=== PATIENT | female | born 1955 ===

== ENCOUNTER 2022-04-02 16:37 | Outpatient (REF) | payer OTHER, SELFPAY | END 2022-04-02 16:38 | disposition home or self-care (01) | LOC: HO.LAB 16:37 | PROVIDERS: Visit Provider Nurse Practitioner Family | DX: N39.0 Urinary tract infection, site not specified (principal) | CPT/HCPCS: 87086 ==

== ENCOUNTER 2023-11-03 10:40 | Outpatient (AMB) | payer MEDICARE, MEDICAID, SELFPAY ==
--- NOTE | 2023-11-03 10:46 | A.OFFVIS_ITS ---
Intake Visit Reasons: [facility] referral for VV Intake Note: Patient has cramping in both legs, veins protrude when her legs swell. Accompanied by: Self / Same As Patient Allergies adhesive tape [ADHESIVE TAPE] Allergy (Unknown, Verified 11/03/23 10:47) RASH amitriptyline [AMITRIPTYLINE] Allergy (Unknown, Verified 11/03/23 10:47) NAUSEA,GI UPSET milnacipran [From SAVELLA] Allergy (Unknown, Verified 11/03/23 10:47) BLURRED VISION silver [From TEGADERM AG MESH] Allergy (Unknown, Verified 11/03/23 10:47) RASH Adhesive Tape Allergy (Unknown, Uncoded 04/02/22 16:31) Rash Tegaderm Allergy (Unknown, Uncoded 04/02/22 16:31) Rash HPI HPI [facility] referral for VV: Details: Very pleasant 68-year-old female actually had seen us back in October of 2015. At that time she had undergone left lower extremity ablation along with right leg microphlebectomy. She had done well for several years and now has developed repeat swelling of the lower extremities. Appears to be affecting her left leg more than her right. 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 She has been using compression stockings faithfully and appears to have been no significant help. She now presents to us for vascular evaluation. [facility] Medical History (Updated 11/04/23 @ 10:31 by Adrian Bowen MD) No pertinent past medical history Surgical History (Updated 04/02/22 @ 16:25 by Samantha Hackett CMA) History of cholecystectomy H/O: hysterectomy Family History (Updated 04/02/22 @ 16:26 by Samantha Hackett CMA) Father Hypertension Mother Lymphoma Social History (Updated 04/02/22 @ 16:26 by Samantha Hackett CMA) Household Members: Friend(s) Housing: House Alcohol intake: never Patient Tobacco Use Status: Never used Tobacco Review of Systems Const Reports as per HPI ENT Reports no additional complaints Card Denies chest pain, Denies chest pain at rest and Denies chest pain with activity Resp Denies chest congestion and Denies cough GI Reports no additional complaints Musc Details: pain over varicosities, aching of lower extremities, swelling, cramping, heaviness and tiredness, itching Denies abnormal gait Skin/Breast Reports pruritus and Denies wounds Neuro Reports no additional complaints and Denies abnormal gait Psych Denies no additional complaints Physical Exam Const General: cooperative, healthy appearing and comfortable Orientation/consciousness: oriented to person, oriented to place and oriented to time Neck Carotids: no bruits Chest Chest palpation & inspection: normal inspection of the chest and normal palpation of entire chest wall Resp Effort & Inspection: normal respiratory effort and able to speak in complete sentences Cardio Rate: regular rate Heart sounds: S1 normal heart sound present and S2 normal heart sound present Peripheral pulses: Peripheral pulses 2+ throughout GI Inspection: Yes normal to inspection Skin Other: +2 edema, large rope-like varicosities greater than 4 mm CEAP Classification C4 - skin color changes Ep - Etiology Primary As - superficial veins P - reflux General skin exam: dry skin Neuro General: oriented to person, oriented to place and oriented to time Extrem Right lower extremity: full ROM, normal capillary refill and edema Left lower extremity: full ROM, normal capillary refill and edema Psych Mental Status: mental status grossly normal Assessment & Plan Assessment & Plan (1) Varicose veins of right lower extremity with inflammation: Comment: 01/09/2016 - operative right lower extremity microphlebectomy Code(s): I83.11 - Varicose veins of right lower extremity with inflammation Category: Medical (2) Varicose veins of left lower extremity with inflammation: Comment: 10/28/2015 left leg endovenous laser therapy. Code(s): I83.12 - Varicose veins of left lower extremity with inflammation Category: Medical Plan: In short patient has recurrent venous disease. We did reinforce conservative measures including compression elevation and exercise. The patient will follow up with us with repeat venous insufficiency testing. This will help us determine if new varicosities need ablation and the status of her prior ablation is. Thank you for allowing us to assist in this very nice patient's care. If there are any questions or concerns please do not hesitate to contact us. Plan See above Orders: Orders US venous duplex LE BI 1 Week I83.12 - Varicose veins of left lower extremity with inflammation Coding Level of Care Code New Pt Level 4 (13292) Diagnoses Varicose veins of right lower extremity with inflammation I83.11 Varicose veins of left lower extremity with inflammation I83.12
== END 2023-11-03 11:52 | disposition home or self-care (01) ==
PROVIDERS: Visit Provider Surgery Vascular Surgery
DX: I83.11 Varicose veins of right lower extremity with inflammation (principal); I83.12 Varicose veins of left lower extremity with inflammation
CPT/HCPCS: 99204

== ENCOUNTER → 2023-11-03 10:40 | Outpatient (BNVA) | payer OTHER, SELFPAY | PROVIDERS: Visit Provider Surgery Vascular Surgery | DX: I83.11 Varicose veins of right lower extremity with inflammation (principal); I83.12 Varicose veins of left lower extremity with inflammation | CPT/HCPCS: 99202 ==

== ENCOUNTER 2023-11-17 12:55 | Outpatient (REF) | payer MEDICARE, OTHER, SELFPAY ==
--- NOTE | ~2023-11-17 | US_ITS ---
EXAMINATION: US LOWER EXTREMITY VENOUS (REFLUX EXAM), BILATERAL CLINICAL INDICATION: Chronic venous insufficiency with lower extremity varicose veins. History of right lower extremity immature phlebectomy, left lower extremity venous ablation COMPARISON: Ultrasound from 09/16/2015 TECHNIQUE: Color flow triplex imaging and compression Doppler was performed to evaluate both the deep and the superficial systems bilaterally. To evaluate the superficial system, the examination was performed in the upright position. Color-flow Doppler ultrasound and compression ultrasound were utilized. In addition, maneuvers were utilized to demonstrate reflux. FINDINGS: 1. DEEP VENOUS ULTRASOUND OF THE RIGHT LOWER EXTREMITY: Common Femoral Vein: Compressible, normal respiratory variation and augmented flow. Femoral Vein: Compressible, normal color flow and augmentation. Popliteal Vein: Compressible, normal augmentation. Deep Reflux: There is no evidence of reflux in the deep system in either the common femoral vein, superficial femoral or the popliteal vein. There is no evidence of a Young's cyst. 2. SUPERFICIAL ULTRASOUND WITH DOPPLER OF RIGHT LOWER EXTREMITY: GREAT SAPHENOUS VEIN: Saphenofemoral Junction: 0.6 cm; Reflux: 0 ms Proximal Thigh: Not visualized Mid Thigh: Not visualized Above Knee: Not visualized At Knee: Not visualized Below Knee: Not visualized Mid Calf: Not visualized Ankle: Not visualized DUPLICATED MEDIAL GREAT SAPHENOUS VEIN: Diameter: None imaged Reflux: NA DUPLICATED LATERAL GREAT SAPHENOUS VEIN: Diameter: None imaged Reflux: NA SMALL SAPHENOUS VEIN: Saphenopopliteal Junction: 0.3 cm; Reflux: 0 ms Proximal: 0.2 cm; Reflux: 0 ms Distal: 0.1 cm; Reflux: 0 ms VEIN OF GIACOMINI: Size: NA Reflux: NA PERFORATORS: Location: Medial knee, medial mid calf extending into multiple varicosities Size: 0.4 - 0.6 cm Reflux: Ranging from 2664 ms to 2988 ms VARICOSITIES: Location: Mid and distal thigh Size: 0.4 cm Reflux: 2636 ms VARICOSITIES: Location: Medial and anterior calf Size: Ranging from 0.6 to 1.1 cm Reflux: Ranging from 636 ms to 1020 ms 3. DEEP VENOUS ULTRASOUND OF THE LEFT LOWER EXTREMITY: Common Femoral Vein: Compressible, normal respiratory variation and augmented flow. Femoral Vein: Compressible, normal color flow and augmentation. Popliteal Vein: Compressible, normal augmentation. Deep Reflux: There is no evidence of reflux in the deep system in either the common femoral vein, superficial femoral or the popliteal vein. There is no evidence of a Young's cyst. 4. SUPERFICIAL ULTRASOUND WITH DOPPLER OF LEFT LOWER EXTREMITY: GREAT SAPHENOUS VEIN: Saphenofemoral Junction: 0.6 cm; Reflux: 0 ms Proximal Thigh: Not visualized Mid Thigh: Not visualized Above Knee: Not visualized At Knee: 0.1 cm; Reflux: 0 ms Below Knee: 0.1 cm; Reflux: 732 ms Mid Calf: 0.1 cm; Reflux: 0 ms Ankle: 0.1 cm; Reflux: 2676 ms DUPLICATED MEDIAL GREAT SAPHENOUS VEIN: Diameter: None imaged Reflux: NA DUPLICATED LATERAL GREAT SAPHENOUS VEIN: Diameter: 0.4 cm Reflux: None SMALL SAPHENOUS VEIN: Saphenopopliteal Junction: 0.2 cm; Reflux: 0 ms Proximal: 0.1 cm; Reflux: 0 ms Distal: 0.1 cm; Reflux: 0 ms VEIN OF GIACOMINI: Size: NA Reflux: NA PERFORATORS: Location: Mid thigh Size: 0.4 cm Reflux: None VARICOSITIES: Location: None significant Size: NA Reflux: NA US/US venous duplex LE BI IMPRESSION: 1. Right: The right great saphenous vein is not visualized consistent with prior stripping. There is a ambulance assistant vein in the medial knee and calf extending into multiple varicosities which demonstrate severe reflux. 2. Left: The left great saphenous vein is not visualized consistent with prior ablation. There is a small segment of the great saphenous vein below the knee which demonstrates severe reflux. Electronically signed by: Will Velazquez MD 11/22/2023 09:41 AM EDT
== END 2023-11-17 12:56 | disposition home or self-care (01) ==
LOC: HO.US 12:55
PROVIDERS: Visit Provider Surgery Vascular Surgery
DX: I83.12 Varicose veins of left lower extremity with inflammation (principal)
CPT/HCPCS: 93970

== ENCOUNTER 2023-12-20 12:48 | Outpatient (AMB) | payer MEDICARE, MEDICAID, SELFPAY ==
--- NOTE | 2023-12-20 12:57 | A.OFFVIS_ITS ---
Intake Visit Reasons: follow up s/p US 11/17/23 Intake Note: Follow up US. No complaints. Accompanied by: Self / Same As Patient Allergies adhesive tape [ADHESIVE TAPE] Allergy (Unknown, Verified 12/20/23 12:58) RASH amitriptyline [AMITRIPTYLINE] Allergy (Unknown, Verified 12/20/23 12:58) NAUSEA,GI UPSET milnacipran [From SAVELLA] Allergy (Unknown, Verified 12/20/23 12:58) BLURRED VISION silver [From TEGADERM AG MESH] Allergy (Unknown, Verified 12/20/23 12:58) RASH Adhesive Tape Allergy (Unknown, Uncoded 04/02/22 16:31) Rash Tegaderm Allergy (Unknown, Uncoded 04/02/22 16:31) Rash HPI HPI follow up s/p US 11/17/23: Details: Very pleasant 68-year-old female presents for follow-up regarding venous insufficiency testing. She has had previous venous procedures done. She has been using compression stockings she complains of persistent pain in the lower extremities. She now presents for routine vascular follow-up with venous insufficiency testing. [facility] Medical History No pertinent past medical history Surgical History History of cholecystectomy H/O: hysterectomy Family History Father Hypertension Mother Lymphoma Social History Household Members: Friend(s) Housing: House Alcohol intake: never Patient Tobacco Use Status: Never used Tobacco Review of Systems Const All systems reviewed & are unremarkable except as noted in HPI and below Reports no additional complaints ENT Reports Normal hearing present Card Denies chest pain, Denies chest pain at rest, Denies chest pain with activity and Denies pedal edema Resp Denies cough GI Denies abdominal pain Musc Denies abnormal gait, Denies muscle cramps and Denies radiating pain into limb Skin/Breast Denies skin ulcer and Denies wounds Neuro Reports Normal hearing present and Denies abnormal gait Psych Reports no additional complaints Physical Exam Const General: cooperative, healthy appearing and comfortable Orientation/consciousness: oriented to person, oriented to place and oriented to time HEENT Head: Yes normal to inspection Neck Neck: Yes normal visual inspection Carotids: no bruits Chest Chest palpation & inspection: normal inspection of the chest Resp Effort & Inspection: normal respiratory effort and able to speak in complete sentences Auscultation: clear to auscultation bilaterally, no crackles, no rales, no rhonchi and no wheezes Cardio Rate: regular rate Rhythm: regular rhythm Heart sounds: S1 normal heart sound present and S2 normal heart sound present Bruits: no carotid bruits Peripheral pulses: Peripheral pulses 2+ throughout GI Inspection: Yes normal to inspection Skin Wounds: no wounds Hair: normal Neuro General: oriented to person, oriented to place and oriented to time Cranial nerves: Yes CN's II-XII intact bilaterally and Yes Normal hearing present Cognition (Neuro): normal cognition Motor exam (neuro): 5/5 motor strength present throughout Extrem Other: venous exam: No significant superficial varicosities or spider telangiectasias, minimal edema General: No clubbing, No cyanosis and No edema Psych Appearance: grossly normal Mental Status: mental status grossly normal Speech and movement: Normal speech and movement present Results Reviewed Results Reviewed: Brief summary of venous insufficiency testing is as follows: right great saphenous vein: negative right small saphenous vein: negative right accessory vein: none present left great saphenous vein: Focally positive in left calf but vein small in caliber left small saphenous vein: negative left accessory vein: none present Please note there is no evidence of any venous aneurysms or significant tortuosity Assessment & Plan Assessment & Plan (1) Varicose veins of left lower extremity with inflammation: Comment: 10/28/2015 left leg endovenous laser therapy. Code(s): I83.12 - Varicose veins of left lower extremity with inflammation Category: Medical Plan: In short patient is negative for any significant venous insufficiency. I do believe that her pain may be more neurogenic in nature related to back pain issues. We did discuss routine conservative measures including compression, elevation, exercise. She will follow up with us on an as-needed basis. Thank you for allowing us to assist in her care. If there are any questions or concerns please do not hesitate to contact us (2) Varicose veins of right lower extremity with inflammation: Comment: 01/09/2016 - operative right lower extremity microphlebectomy Code(s): I83.11 - Varicose veins of right lower extremity with inflammation Category: Medical Plan: See above Coding Level of Care Code Est Pt Level 4 (74033) Diagnoses Varicose veins of left lower extremity with inflammation I83.12 Varicose veins of right lower extremity with inflammation I83.11
== END 2023-12-20 13:51 | disposition home or self-care (01) ==
PROVIDERS: Visit Provider Surgery Vascular Surgery
DX: I83.12 Varicose veins of left lower extremity with inflammation (principal); I83.11 Varicose veins of right lower extremity with inflammation
CPT/HCPCS: 99214

== ENCOUNTER → 2023-12-20 12:48 | Outpatient (BNVA) | payer MEDICARE, MEDICAID, SELFPAY | PROVIDERS: Visit Provider Surgery Vascular Surgery | DX: I83.12 Varicose veins of left lower extremity with inflammation (principal); I83.11 Varicose veins of right lower extremity with inflammation | CPT/HCPCS: 99212 ==

== ENCOUNTER 2024-06-21 11:35 | Emergency (ER) | payer MEDICARE, MEDICAID, SELFPAY ==
--- NOTE | ~2024-06-21 | CT_ITS ---
CLINICAL HISTORY: L neck pain swelling, painful swallowing CT of the neck utilizing intravenous contrast. No comparison. Findings: The epiglottis is normal in thickness. No retropharyngeal or peritonsillar abscess is seen. There is minimal soft tissue thickening along the periphery of the right parotid gland that is nonspecific. The salivary glands are otherwise unremarkable. No enlarged lymph nodes or suspicious masses are seen. No suspicious bony lesions are seen. There are multilevel degenerative changes in the spine. Impression: No suspicious abnormalities are seen in the left neck. Mild soft tissue thickening along the surface of the right parotid gland is nonspecific. A prior inflammatory process is a possibility. Acute significance is doubtful. There is possible significant narrowing of the proximal right internal carotid artery recommend comparison to previous or further evaluation. This document has been electronically signed by: Luis A Biggs MD on 06/21/2024 18:24:41
[2024-06-21 11:47] VITALS: BP 131/53; PULSE 93; RESP 16; TEMP 36.3; O2SAT 98; BMI 30.3
--- NOTE | 2024-06-21 11:53 | ED_ITS ---
HPI - General Adult General Chief complaint: General Medical Stated complaint: pain on l side diff swallowing Time Seen by Provider: 06/21/24 15:03 Source: patient, RN notes reviewed and old records reviewed Mode of arrival: ambulatory History of Present Illness ED Provider: Maylin Burton PA-C HPI narrative: 68-year-old female with a past medical history of right-sided carotid endarterectomy '04, presenting to the ED complaining of left-sided facial/ear/neck pain x6 months worsening x this morning with associated painful swallowing & swelling. Denies inability to swallow, fever, chills, drainage from ear, hearing loss, SOB Related Data Home Medications ?Medication ?Instructions ?Recorded ?Confirmed atorvastatin 20 mg tablet 20 mg PO QAM 04/02/22 04/02/22 blood sugar diagnostic (FreeStyle #10 ea 04/02/22 04/02/22 Lite Strips) duloxetine 60 mg capsule,delayed 60 mg PO DAILY 04/02/22 04/02/22 release metformin 500 mg tablet 1,000 mg PO BID 04/02/22 04/02/22 pregabalin 75 mg capsule 75 mg PO DAILY 04/02/22 04/02/22 aspirin 81 mg tablet,delayed 81 mg PO DAILY 11/03/23 release blood-glucose meter (OneTouch 11/03/23 Verio Flex Meter) calcium carbonate 600 mg PO DAILY 11/03/23 ezetimibe 10 mg tablet 10 mg PO DAILY 11/03/23 ezetimibe 10 mg tablet 10 mg PO DAILY 11/03/23 lancets 30 gauge (OneTouch Delica 11/03/23 Plus Lancet) losartan 25 mg tablet 50 mg PO DAILY 11/03/23 nystatin 500,000 unit tablet 500,000 unit PO QID 11/03/23 omeprazole 20 mg capsule,delayed 20 mg PO DAILY 11/03/23 release pioglitazone 15 mg tablet (Actos) 15 mg PO DAILY 11/03/23 cyclobenzaprine 5 mg tablet 5 mg PO BEDTIME 12/20/23 Allergies Allergy/AdvReac Type Severity Reaction Status Date / Time adhesive tape [ADHESIVE TAPE] Allergy Unknown RASH Verified 06/21/24 11:50 amitriptyline [AMITRIPTYLINE] Allergy Unknown NAUSEA,GI Verified 06/21/24 11:50 UPSET milnacipran [From SAVELLA] Allergy Unknown BLURRED Verified 06/21/24 11:50 VISION silver Allergy Unknown RASH Verified 06/21/24 11:50 [From TEGADERM AG MESH] Adhesive Tape Allergy Unknown Rash Uncoded 04/02/22 16:31 Tegaderm Allergy Unknown Rash Uncoded 04/02/22 16:31 Review of Systems 2 Review of Systems: Yes all other systems are reviewed and are negative Constitutional: Constitutional: Reports as per [facility] Past Medical History Attestation statement: The following information was validated with the patient. Source: old records reviewed Medical History No pertinent past medical history Surgical History History of cholecystectomy H/O: hysterectomy Family History Family History Father Hypertension Mother Lymphoma Social History Social History Household Members: Friend(s) Housing: House Alcohol intake: never Patient Tobacco Use Status: Never used Tobacco Advance Directives: No Advance Directives Information Provided: Yes Physical Exam ED Vital Signs: Vital Signs - 24 hr 06/21/24 11:47 06/21/24 15:39 Temperature 97.4 F 98 F Pulse Rate 93 80 Respiratory Rate 16 18 Blood Pressure 131/53 L 120/71 Pulse Oximetry 98 97 Oxygen Delivery Method Room Air Room Air BMI result Body Mass Index 30.3 Const General: cooperative, healthy appearing and no acute distress Orientation/consciousness: patient oriented x3 Limitations: no limitations [facility] Head: Yes normal to inspection and Yes atraumatic Ears: hearing grossly normal bilaterally, external ears normal, TM's normal bilaterally and mastoids normal General nose exam: Normal external nose present Face and sinus: Yes normal facial exam Mouth: Normal oral and palatal mucosa present, lip normal, tongue normal and no drooling Throat: Yes posterior oropharynx normal, Yes tonsils normal, Yes uvula midline, No peritonsillar mass, No uvula laterally displaced and No uvular edema Eyes General: appearance normal, both eyes and all related structures EOM: EOMs intact bilaterally Neck Other: Mild left-sided neck swelling appreciated. Mildly tender to palpation. No erythema, fluctuance or induration Neck: Yes full ROM, Yes trachea midline and Yes supple Resp Effort & Inspection: normal respiratory effort, no respiratory distress and no stridor Cardio Rate: regular rate Skin Rashes: no rashes Wounds: no wounds Neuro General: patient oriented x3 and tone normal Cranial nerves: Yes CN's II-XII intact bilaterally Gait exam (Neuro): Normal gait present Extrem General: Yes normal to inspection Course Course Course Narrative: RME, this is a rapid medical exam performed by Sanju Trinidad please refer to primary provider for complete H&P- 68-year-old female presents for evaluation of left-sided neck pain and sore throat when swallowing. Symptoms started a month ago. There is minimal retropharyngeal erythema. No anterior neck edema or facial edema. Plan for viral swabs and labs including thyroid testing -no leukocytosis. ESR/CRP minimally elevated -TSH WNL -viral testing and rapid strep negative CT soft tissue neck w IV con Impression: No suspicious abnormalities are seen in the left neck. Mild soft tissue thickening along the surface of the right parotid gland is nonspecific. A prior inflammatory process is a possibility. Acute significance is doubtful. There is possible significant narrowing of the proximal right internal carotid artery recommend comparison to previous or further evaluation. Results discussed with patient > recommend ENT and vascular follow-up worrisome signs and symptoms and strict return precautions, and when to return to the emergency department. They verbalized understanding and feel safe for discharge at this time. Medications Administered Discontinued Medications Generic Name Dose Route Start Last Admin Trade Name Freq PRN Reason Stop Dose Admin Sodium Chloride 1,000 mls @ 999 mls/hr 06/21/24 15:15 06/21/24 17:54 Ns IV 06/21/24 16:15 Infused .Q1H1M LINDA Infusion Iohexol 100 ml 06/21/24 17:42 06/21/24 17:43 Iohexol 350 Mg/Ml 100 Ml Infus..Btl IV 06/21/24 17:43 60 ml ONCE ONE Administration Ketorolac Tromethamine 15 mg 06/21/24 15:11 06/21/24 15:39 Ketorolac Tromethamine 15 Mg/Ml Vial IVPUSH 06/21/24 15:12 15 mg ONCE ONE Administration Medical Decision Making Medical Decision Making [facility] Narrative: 68-year-old female with a past medical history of right-sided carotid endarterectomy '04, presenting to the ED complaining of left-sided facial/ear/neck pain x6 months worsening x this morning with associated painful swallowing & swelling. On exam vital signs stable, NAD, nontoxic appearing, physical exam as noted above with mild left-sided neck swelling and tenderness. TMs WNL, mastoids WNL. No evidence of acute otitis media/externa. Lower suspicion for mastoiditis. Concern for deeper infection including edema vs cellulitis or ?deeper abscess. Giant cell arteritis/trigeminal neuralgia lower on differential. No evidence of respiratory compromise Plan: Labs, viral testing, rapid strep, CT neck, IVF, pain control, re-evaluate Please refer to course for remaining clinical decision making, interpretation of labs/imaging results, and discussions with consultants and/or family members. Differential Diagnosis Differential Diagnoses: The differential diagnosis associated with the presentation includes As above Admission/Observation Consideration of admission/observation: Escalation of care including admission/observation considered Lab Data MDM Lab Attestation statement: I reviewed the patient's lab results. 06/21/24 12:05 06/21/24 12:05 Labs: Lab Results 06/21/24 Range/Units 12:05 WBC 8.1 (4.8-10.8) X10*3/uL RBC 4.52 (4.20-5.50) X10*6/uL Hgb 11.9 L (12.0-16.0) g/dl Hct 37.6 (37.0-47.0) % MCV 83.2 (80.0-98.0) fL MCH 26.3 L (27.0-33.0) pg MCHC 31.6 (31.0-35.0) g/dl RDW 14.6 (11.0-16.0) % Plt Count 256 (160-400) X10*3/uL MPV 11.8 (9.4-12.3) fL Immature Gran % (Auto) 0.2 (0.0-0.4) % Neut % (Auto) 63.7 (45-73) % Lymph % (Auto) 28.1 (20-40) % [place] % (Auto) 6.1 (2-11) % Eos % (Auto) 1.5 (0-4) % Baso % (Auto) 0.4 (0-2) % Lymph # (Auto) 2.3 (1.2-4.9) X10*3/uL [place] # (Auto) 0.5 (0.1-1.2) X10*3/uL Eos # (Auto) 0.1 (0.0-0.4) X10*3/uL Baso # (Auto) 0.0 (0.0-0.2) X10*3/uL Abs Immat Gran (auto) 0.02 (0.00-0.03) X10*3/uL Absolute Neuts (auto) 5.1 (2.0-8.3) x10*3/uL Absolute Nucleated RBC 0.000 (0.0-0.012) X10*3/uL Nucleated RBC % (auto) 0.0 (0.0-0.2) /100WBC ESR 27 H (0-20) MM/HR Sodium 140 (135-145) mmol/L Potassium 4.3 (3.3-5.1) mmol/L Chloride 102 (96-108) mmol/L Carbon Dioxide 27 (22-29) mmol/L Anion Gap 15 (12-20) BUN 17 H (9-16) mg/dL Creatinine 0.77 (0.5-1.4) mg/dL Estim Creat Clear Calc 65.5 Estimated GFR > 60 Random Glucose 143 H (60-115) mg/dL Calcium 9.7 (8.4-10.2) mg/dL C-Reactive Protein 0.66 H (< or = 0.50) mg/dL TSH 1.51 (0.32-4.0) uIU/mL Influenza Type A (PCR) NEGATIVE (Negative) Influenza Type B (PCR) NEGATIVE (Negative) RSV RNA Qual (PCR) NEGATIVE (Negative) SARS-CoV-2 RNA (RT-PCR) NEGATIVE (Negative) S. pyogenes GrpA THAI Negative (Negative) Independent Interpretation I performed an independent interpretation of an: CT Scan Radiology Impression Discussion of test interpretation with radiology: I have reviewed the radiologist's reading. External Record Review External record reviewed: Inpatient record, Office record, Outpatient record, Prior outpatient labs, Prior outpatient radiology, Primary care record and Outside ED record Tests considered The following testing was considered but not selected: As above Prescription Management I considered prescription management with: Pain Medication and Antibiotic Chronic Conditions Patient?s care impacted by: Other Social Determinants Patient?s care significantly limited by Social Determinants of Health including: Other Social Determinant of Health Discharge Plan Discharge Clinical Impression: Neck pain Patient Disposition: Home, Self-Care Instructions: Chronic Neck Pain (DC) Additional Instructions: Your blood work and CAT scan are reassuring. Your CAT scan does not show anything new. Please follow up with an Ear Nose Throat specialist. Call to make an appointment Take Tylenol and ibuprofen for pain/swelling In addition follow-up with vascular surgery. If you develop persistent or worsening pain, swelling, difficulty or inability to swallow, shortness of breath, wheezing, fevers return to the emergency department CT soft tissue neck w IV con Impression: No suspicious abnormalities are seen in the left neck. Mild soft tissue thickening along the surface of the right parotid gland is nonspecific. A prior inflammatory process is a possibility. Acute significance is doubtful. There is possible significant narrowing of the proximal right internal carotid artery recommend comparison to previous or further evaluation. Prescriptions: No Action metformin 500 mg tablet 1,000 mg PO BID atorvastatin 20 mg tablet 20 mg PO QAM pregabalin 75 mg capsule 75 mg PO DAILY duloxetine 60 mg capsule,delayed release(DR/EC) 60 mg PO DAILY (DME) FreeStyle Lite Strips Strip See Rx Instructions .ROUTE DAILY Qty: 10 Rx Instructions: As directed losartan 25 mg tablet 50 mg PO DAILY aspirin 81 mg tablet,delayed release (DR/EC) 81 mg PO DAILY ezetimibe 10 mg tablet 10 mg PO DAILY calcium carbonate 600 mg calcium (1,500 mg) tablet 600 mg PO DAILY ezetimibe 10 mg tablet 10 mg PO DAILY nystatin 500,000 unit tablet 500,000 unit PO QID omeprazole 20 mg capsule,delayed release(DR/EC) 20 mg PO DAILY (DME) lancets [OneTouch Delica Plus Lancet] 30 gauge [facility] See Rx Instructions .ROUTE Rx Instructions: As directed (DME) blood-glucose meter [OneTouch Verio Flex meter] [facility] See Rx Instructions .ROUTE Rx Instructions: As directed pioglitazone [Actos] 15 mg tablet 15 mg PO DAILY cyclobenzaprine 5 mg tablet 5 mg PO BEDTIME Referrals: [facility] Vascular Services [Provider Group] [facility] [Outside] [facility] [Outside] Gianna Payne DO [Primary Care Provider] - 3 days Print Language: Brazilian
[2024-06-21 12:23] LABS: MANUAL DIFF FLAG NO
[2024-06-21 12:24] LABS: Basophils Percent Auto 0.4 % (0-2); Eosinophils Absolute Auto 0.1 X10*3/uL (0.0-0.4); Eosinophils Percent Auto 1.5 % (0-4); Hematocrit 37.6 % (37.0-47.0); Hemoglobin 11.9 g/dl (12.0-16.0); Imm Gran Abs Auto 0.02 X10*3/uL (0.00-0.03); Imm Gran Pct Auto 0.2 % (0.0-0.4); Lymphocytes Absolute Auto 2.3 X10*3/uL (1.2-4.9); Lymphocytes Percent Auto 28.1 % (20-40); Mean Corpuscular HGB Conc 31.6 g/dl (31.0-35.0); Mean Corpuscular Hemoglobin 26.3 pg (27.0-33.0); Mean Corpuscular Volume 83.2 fL (80.0-98.0); Mean Platelet Volume 11.8 fL (9.4-12.3); Monocytes Absolute Auto 0.5 X10*3/uL (0.1-1.2); Monocytes Percent Auto 6.1 % (2-11); Neutrophils Absolute Auto 5.1 x10*3/uL (2.0-8.3); Neutrophils Percent Auto 63.7 % (45-73); Platelet Count 256 X10*3/uL (160-400); Red Blood Count 4.52 X10*6/uL (4.20-5.50); Red Cell Distribution Width 14.6 % (11.0-16.0); White Blood Count 8.1 X10*3/uL (4.8-10.8)
[2024-06-21 12:38] LABS: IDNOW Serial# 58CA691E; Strep A Nucleic Acid Negative (Negative)
[2024-06-21 12:42] LABS: Anion Gap 15 (12-20); Blood Urea Nitrogen 17 mg/dL (9-16); Calcium 9.7 mg/dL (8.4-10.2); Carbon Dioxide 27 mmol/L (22-29); Chloride 102 mmol/L (96-108); Creatinine Clr Calc Pharmacy 65.5; Estimated Glomerular Filt Rate > 60; Glucose Random 143 mg/dL (60-115); Potassium 4.3 mmol/L (3.3-5.1); Sodium 140 mmol/L (135-145)
[2024-06-21 12:57] LABS: TSH reflex Free T4 1.51 uIU/mL (0.32-4.0)
[2024-06-21 13:00] LABS: Influenza A PCR NEGATIVE (Negative); Influenza B PCR NEGATIVE (Negative); Resp Syncy Virus RNA Qual PCR NEGATIVE (Negative); SARS COV2 PCR INHOUSE NEGATIVE (Negative)
[2024-06-21 15:26] LABS: C Reactive Protein 0.66 mg/dL (< or = 0.50)
--- OUTSIDE RECORDS SUMMARY | 2024-06-21 15:33 | XMS_ITS | Encounter Summary ---
Author Organization [employer] Address [address] [facility] 7 [place] [address] Care Team Providers Care Manager Delivery Name Role Phone Sujey Rapp [facility] Primary Care Provider Unavailable Demi Mckenna Unavailable Unavailable Kemi Onofre RD Unavailable [phone] Sonia Garcia [facility] Unavailable [phone] Jason Morales Unavailable Unavailable Diamond Vidal [facility] Primary Care Provider [phone] Gianna Payne DO Primary Care Provider [phone] Encounter Details Date Type Department Care Team (Latest Contact Info) Description 12/08/2020 Abstract [facility]VERSION[facility] Dental, Provider, DDS Social History Tobacco Use Types Packs/Day Years Used Date Smoking Tobacco: Never Assessed Comments Unknown Sex and Gender Information Value Date Recorded Sex Assigned at Female 01/19/2022 2:24 PM EST Legal Sex Female 5:34 PM EDT Gender Identity Female 01/19/2022 2:24 PM EST Sexual Orientation Straight 01/19/2022 2: 24 PM EST documented as of this encounter Plan of Treatment Upcoming Encounters Date Type Department Care Team (Late st Contact Info) Description 06/26/2024 10:45 AM EDT Clinical Support [facility] NUTRITION [address] [place] [address] [place] [address] 07/13/2024 11:15 AM EDT Office Visit [facility] MEDICAL [address] [place] [address] Gianna Payne DO [address] [place] [address] 08/29/2024 11:00 AM EDT Office Visit [facility] OPTOMETRY [address] [place] [address] Brie Mena, OD [address] [place] [address] 10/19/2024 11:00 AM EDT Office Visit [facility] DENTAL [address] [place] [address] Loree Cote documented as of this encounter Visit Diagnoses Not on filedocumented in this encounter Care Teams Manager Delivery Relationship Specialty Start Date End Date Sujey Rapp FNP PCP - General Family Medicine 03/12/22 10/30/23 Diamond Vidal FNP [address] [place] [address] PCP - General Family Medicine 10/31/23 04/11/24 Gianna Payne DO [address] [place] [address] PCP - General Family Medicine 04/12/24 Demi Mckenna Community Health Worker 06/07/[address] [place] [address] Dietitian Dietitian 07/06/22 Snoia Garcia LICSW [address] [place] [address] Cavalry Officer Behavioral Health 07/06/22 Jason Morales Health Navigator 07/20/18 documented as of this encounter
--- OUTSIDE RECORDS SUMMARY | 2024-06-21 15:33 | XMS_ITS | Encounter Summary ---
Author Organization [employer] Address [address] [facility] 7 [place] [address] Care Team Providers Care Tug Captain Name Role Phone Sujey Rapp [facility] Primary Care Provider Unavailable Demi Mckenna Unavailable Unavailable Kemi Onofre RD Unavailable [phone] Sonia Garcia [facility] Unavailable [phone] Jason Morales Unavailable Unavailable Diamond Vidal [facility] Primary Care Provider [phone] Gianna Payne DO Primary Care Provider [phone] Encounter Details Date Type Department Care Team (Latest Contact Info) Description 10/10/2019 Abstract [facility] CONVERSION[facility] Dental, Provider, DDS Social [...] Description 06/26/2024 10:45 AM EDT Clinical Support [facility] NUTRITION [address] [place] [address] Kemi Onofre, SVETLANA [address] [place] [address] 07/13/2024 11:15 AM EDT Office Visit [facility] MEDICAL [address] [place] [address] Gianna Payne DO [address] [place] [address] 08/29/2024 11:00 AM EDT Office Visit [facility] OPTOMETRY [address] [place] [address] Brie Mena, OD [address] [place] [address] 10/19/2024 11:00 AM EDT Office Visit [facility] DENTAL [address] [place] [address] Loree Cote documented as of this encounter Visit Diagnoses Not on filedocumented in this encounter Care Teams Tug Captain Relationship Specialty Start Date End Date Sujey Rapp FNP PCP - General Family Medicine 03/12/22 10/30/23 Diamond Vidal FNP [address] [place] [address] PCP - General Family Medicine 10/31/23 04/11/24 Gianna Payne DO [address] [place] [address] PCP - General Family Medicine 04/12/24 Demi Mckenna Community Health Worker 06/07/[address] [place] [address] Dietitian Dietitian 07/06/22 Sonia Garcia, MUSICAL INSTRUMENT SUPERVISOR [address] [place] [address] Wool Broker Behavioral Health 07/06/22 Jason Morales Health Navigator 07/20/18 documented as of this encounter
--- OUTSIDE RECORDS SUMMARY | 2024-06-21 15:33 | XMS_ITS | Encounter Summary ---
Author Organization [employer] Address [address] [facility] [address] [place] [address] Care Team Providers Care Charge Account Identification Clerk Name Role Phone Bala, Demi Unavailable Unavailable Kemi Onofre RD Unavailable [phone] Apoorva Garciaalthea JERRYSW Unavailable [phone] Jason Morales Unavailable Unavailable Gianna Payne DO Primary Care Provider Encounter Details Date Type Department Care Team (Late st Contact Info) Description 04/12/2024 Orders Only [facility] Information Management [address] [place] [address] Gianna Payne DO [address] [place] [address] Social History Tobacco Use Types Packs/Day Years Used Date Smoking Tobacco: Former Cigarettes Passive Smoke Exposure: Past Smokeless Tobacco: Never Alcohol Use Standard Drinks/Week Comments Never 0 (1 standard drink = 0.6 oz pur e alcohol) Alcohol Answer Date Recorded How often do you have a drink containing alcohol ? 0 10/31/2023 How many drinks containing a lcohol do you have on a typical day when you are drinking? 0 10/31/2023 How often do you have six or more drinks on one occasion? 0 10/31/2023 Depression Answer Date Recorded Patient Health Questionnaire-9 Score 7 11/21/2023 Patient Health Questionnaire-9 Score 7 11/21/2023 Last PHQ-9: Questionnaire Data Not on file 1 Housing Stability Answer Date Recorded What is your housing situation today? I have ryder gutierrez 04/12/[address] you li ve. Do you have problems with any of the following? None of the above 04/12/2024 Food Insecurity Answer Date Recorded Within the past 12 months, y ou worried that your food would run out before you got money to buy more: Never True 04/12/2024 Within the past 12 months,th e food you bought just didn't last and you didn't have enough money to get more: Never True 07/2024 Transportation Answer Date Recorded In the past 12 months, has l ack of transportation kept you from medical appts, meetings, work or from getting things needed for daily living? No 04/04/2023 Intimate Partner Violence Answer Date R ecorded Within the last year, have y ou been afraid of your partner or ex-partner? 2 10/31/2023 Within the last year, have y ou been humiliated or emotionally abused in other ways by your partner or ex-partner? 2 Within the last year, have y ou been kicked, hit, slapped, or otherwise physically hurt by your partner or ex-partner? 2 10/31/2023 Within the last year, have y ou been raped or forced to have any kind of sexual activity by your partner or ex-partner? 2 10/31/2023 Utilities Answer Date Recorded In the past 12 months, has t he electric, gas, oil or water company threatened to shut off services in your home? No 04/12/2024 Depression Answer Date Recorded Patient Health Questionnaire-2 Score 2 11/21/2023 Internet Access Answer Date Recorded Internet Access Q1 Yes 10/31/2023 Internet Access Q2 I do not want or need it 10/09 Education Answer Date Recorded What is the highest level of school you have completed or the highest degree you have received? 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 NUTRITION [address] [place] [address] [place] [address] 07/13/2024 11:15 AM EDT Office Visit [facility] MEDICAL [address] [place] [address] Gianna Payne DO [address] [place] [address] 08/29/2024 11:00 AM EDT Office Visit [facility] OPTOMETRY [address] [place] [address] Brie Mena, OD [address] [place] [address] 10/19/2024 11:00 AM EDT Office Visit [facility] DENTAL [address] [place] [address] Loree Cote documented as of this encounter Procedures Procedure Name Priority Date/Time Associated Diagnosis Comments VASC US LOWER EXTREMITY VENOUS DUPLEX BILATERAL Routine 11/17/2023 2:18 PM EDT documented in this encounter Results * VASC US Lower Extremity Venous Duplex Bilateral (11/17/2023 2:18 PM EDT) us Gianna aPyne DO CV VASCULAR PROCEDURES Final R esult documented in this encounter Visit Diagnoses Not on filedocumented in this encounter Additional Health Concerns Assessment Noted Time PHQ-9 Depression Total Score: 7 11/21/19 24 10:22 AM EDT documented as of this encounter Care Teams Charge Account Identification Clerk Relationship Specialty Start Date End Date Gianna Payne DO [address] [place] [address] PCP - General Family Medicine 04/12/24 Demi Mckenna Community Health Worker 06/07/[address] [place] [address] Dietitian Dietitian 07/06/22 Sonia Garcia LICSW [address] [facility] [place] [address] Hospital Pharmacy Director Behavioral Health 07/06/22 Jason Morales Health Navigator 07/20/18 documented as of this encounter
--- OUTSIDE RECORDS SUMMARY | 2024-06-21 15:33 | XMS_ITS | Encounter Summary ---
Author Organization [employer] Address [address] [place] [address] Care Team Providers Care Qa Developer Name Role Phone Sujey Rapp Primary Care Provider Unavailable Demi Mckenna Unavailable Unavailable Kemi Onofre RD Unavailable [phone] Sonia GarciaSW Unavailable [phone] Jason Morales Unavailable Unavailable Diamond Vidal Primary Care Provider [phone] Gianna Payne DO Primary Care Provider [phone] Encounter Details Date Type Department Care Team (Late st Contact Info) Description 10/24/2023 Orders Only [facility] MEDICAL [address] [place] [address] Sujey Rapp FNP Paresthesia of left upper extremity Social History Tobacco Use Types Packs/Day Years Used Date Smoking Tobacco: Former Cigarettes Smokeless Tobacco: Never Alcohol Use Standard Drinks/Week Comments Never 0 (1 standard drink = 0.6 oz pur e alcohol) PHQ-2 Answer Date Recorded Patient Health Questionnaire-2 Score 2 03/17/2022 Housing Stability Answer Date Recorded What is your housing situation today? I have ryder gutierrez 04/04/[address] you li ve. Do you have problems with any of the following? None of the above 04/04/2023 Food Insecurity Answer Date Recorded Within the past 12 months, y ou worried that your food would run out before you got money to buy more: Never True 04/04/2023 Within the past 12 months,th e food you bought just didn't last and you didn't have enough money to get more: Never True Transportation Answer Date Recorded In the past 12 months, has l ack of transportation kept you from medical appts, meetings, work or from getting things needed for daily living? No 04/04/2023 Utilities Answer Date Recorded In the past 12 months, has t he electric, gas, oil or water company threatened to shut off services in your home? No 04/04/2023 Depression Answer Date Recorded Patient Health Questionnaire-2 Score 0 04/04/2023 Education Answer Date Recorded What is the highest level of school you have completed or the highest degree you have received? 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 Not on file Not on file documented as of this encounter Plan of Treatment Upcoming Encounters Date Type Department Care Team (Late st Contact Info) Description 06/26/2024 10:45 AM EDT Clinical Support [facility] NUTRITION [address] [place] [address] Kemi Onofre, RD [address] [place] [address] 07/13/2024 11:15 AM EDT Office Visit [facility] MEDICAL [address] [place] [address] Gianna Payne DO [address] [place] [address] 08/29/2024 11:00 AM EDT Office Visit [facility] OPTOMETRY [address] [place] [address] Brie Mena, AMAN [address] [place] [address] 10/19/2024 11:00 AM EDT Office Visit [facility] DENTAL [address] [place] [address] Loree Cote documented as of this encounter Procedures Procedure Name Priority Date/Time Associated Diagnosis Comments EMG Routine 10/20/2023 Paresthesia of left upper extremity documented in this encounter Results * EMG (10/20/2023) Sujey PUENTES NEUROLOGY ORDERABLES F inal Result documented in this encounter Visit Diagnoses Diagnosis Paresthesia of left upper extremity documented in this encounter Care Teams Qa Developer Relationship Specialty Start Date End Date Sujey Rapp FNP PCP - General Family Medicine 03/12/22 10/30/23 Diamond Vidal FNP [address] [place] [address] PCP - General Family Medicine 10/31/23 04/11/24 Gianna Payne DO [address] [place] [address] PCP - General Family Medicine 04/12/24 Demi Mckenna Community Health Worker 06/07/[address] [place] [address] Dietitian Dietitian 07/06/22 Sonia Garcia LICSW [address] [place] [address] Die Engraving Supervisor Behavioral Health 07/06/22 Jason Morales Health Navigator 07/20/18 documented as of this encounter
--- OUTSIDE RECORDS SUMMARY | 2024-06-21 15:33 | XMS_ITS | Continuity of Care Document ---
Author Name [facility] Organization [facility] Care Team Providers Care Bowling Ball Grader Name Role Phone [facility] Unavailable Unavailable Encounters Combined list of: 1) Encounters from [facility] facilities going backup to the last 18 months, not all [facility] inpatient encounters are included; 2) Encounters from the [facility] of [facility] facilities going backup to 280 months. Location Location Details Encounter Type Encounter Number Reason For Visit Attending Provider ADM Date DC Date Status Disposition Source [place] [facility] Outpatient Encounter [id number] 11/25 [place] [facility]
--- OUTSIDE RECORDS SUMMARY | 2024-06-21 15:33 | XMS_ITS | Encounter Summary ---
Author Organization [employer] Address [address] [place] [address] Care Team Providers Care Biscuit Machine Operator Name Role Phone Bala, Demi Unavailable Unavailable Kemi Onofre RD Unavailable [phone] Apoorva Garciaalthea JERRYSW Unavailable [phone] Jason Morales Unavailable Unavailable Diamond Vidal Primary Care Provider [phone] Gianna Payne DO Primary Care Provider [phone] Encounter Details Date Type Department Care Team (Late st Contact Info) Description 11/02/2023 Orders Only [facility] MEDICAL [address] [place] [address] Provider, MD Eladio Social History Tobacco Use Types Packs/Day Years Used Date Smoking Tobacco: Former Cigarettes Passive Smoke Exposure: Past Smokeless Tobacco: Never Alcohol Use Standard Drinks/Week Comments Never 0 (1 standard drink = 0.6 oz pur e alcohol) PHQ-2 Answer Date Recorded Patient Health Questionnaire-2 Score 2 03/17/2022 Alcohol Answer Date Recorded How often do you have a drink containing alcohol ? 0 10/31/2023 How many drinks containing a lcohol do you have on a typical day when you are drinking? 0 10/31/2023 How often do you have six or more drinks on one occasion? 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 Not on file Not on file Not on file documented as of this encounter Plan of Treatment Upcoming Encounters Date Type Department Care Team (Late st Contact Info) Description 06/26/2024 10:45 AM EDT Clinical Support [facility] NUTRITION [address] [place] [address] [place] [address] 07/13/2024 11:15 AM EDT Office Visit [facility] MEDICAL [address] [place] [address] Gianna Payne DO [address] [place] [address] 08/29/2024 11:00 AM EDT Office Visit [facility] OPTOMETRY [address] [place] [address] Brie Mena OD [address] [place] [address] 10/19/2024 11:00 AM EDT Office Visit [facility] DENTAL [address] [place] [address] Loree Cote documented as of this encounter Procedures Procedure Name Priority Date/Time Associated Diagnosis Comments ECG 12-LEAD Routine 10/31/2023 9:02 AM EDT documented in this encounter Results * ECG 12 lead (10/31/2023 9:02 AM EDT) us Historical Provider ECG ORDERABLES Final Res ult documented in this encounter Visit Diagnoses Not on filedocumented in this encounter Care Teams Biscuit Machine Operator Relationship Specialty Start Date End Date Diamond Vidal FNP [address] [place] [address] PCP - General Family Medicine 10/31/23 04/11/24 Gianna Payne DO [address] [place] [address] PCP - General Family Medicine 04/12/24 Demi Mckenna Community Health Worker 06/07/[address] [place] [address] Dietitian Dietitian 07/06/22 Sonia Garcia, [facility] [address] [place] [address] Chocolate Dipper Behavioral Health 07/06/22 Jason Morales Health Navigator 07/20/18 documented as of this encounter
--- OUTSIDE RECORDS SUMMARY | 2024-06-21 15:33 | XMS_ITS | Clinical Summary ---
Author Organization [employer] Address [address] [facility] [address] [place] [address] Care Team Providers Care [employer] Dynamics Developer Name Role Phone [place], Demi Unavailable Unavailable Kemi Onofre RD Unavailable [phone] Sonia Garcia UNIT CLERK Unavailable Jason Morales Unavailable Unavailable Gianna Payne DO Primary Care Provider [phone] Allergies Active Allergy Reactions Criticality Noted Date Comments Amitriptyline Other Medium 05/05/2020 Other reaction(s): Naseaus, stomach upset Nausea upset stomach Milnacipran Low 05/05/2020 Other reaction(s): blurred vision Blurred vision Tegaderm Alginate Ag Rope Rash Low 03/02/2022 Other reaction(s): Unknown Wound Dressing Adhesive Rash Low 05/05/2020 Medications * This document contains information received from the source organization and may not represent a complete record from that organization. lidocaine (Xylocaine) 5 % ointment PRN only 2 Active Acetaminophen Extra Strength 500 MG tablet Take 500 mg by mouth every 6 (six) hours if needed. PRN 2 Active aspirin 81 MG EC tablet Take 81 mg by mouth 1 (one) time. Active Cod Liver Oil oil Take by mouth. Active Lancets (OneTouch Delica) lancets 30GIndications:Typ e 2 diabetes mellitus with diabetic polyneuropathy, without long-term current use of insulin ([facility]) 1 each by Other route in the morning. 100 each 1 3 Active Turmeric (QC TUMERIC COMPLEX PO) Take by mouth. Activ e glucose blood (OneTouch Verio) test stripIndications:T ype 2 diabetes mellitus with diabetic polyneuropathy, without long-term current use of insulin (CMS/HCC) 1 each by Other route Once per day. Use as instructed 100 each 11 4 Active Artificial Tears ophthalmic solution Administer 1 drop into both eyes if needed in the morning, at noon, in the evening, and at bedtime (when symptoms occur). 15 mL 12 4 025 Active cyclobenzaprine (Flexeril) 5 MG tabletIndications: Fibromyalgia Take 1 tablet (5 mg) by mouth at bedtime. 30 tablet 2 4 Active omeprazole (PriLOSEC) [address] capsuleIndications :Gastro-esophageal reflux disease without esophagitis Take 1 capsule (20 mg) by mouth Once per day. /90 days 90 capsule 1 4 025 Active DULoxetine (Cymbalta) [address] capsuleIndications :Fibromyalgia Take 1 capsule (60 mg) by mouth Once per day. Do not crush or chew. 90 capsule 4 025 Active calcium carbonate (Calcium 600) 600 MG tabletIndications: Osteopenia after menopause Take 1 tablet (600 mg) by mouth Once per day. 90 tablet 4 Active metFORMIN (Glucophage) 500 MG tablet TAKE 2 TABLETS BY MOUTH IN THE MORNING AND 2 TABLETS AT NIGHT 120 tablet 4 5 Active Ascorbic Acid (vitamin C) 500 MG tablet Take 1 tablet by mouth Once per day. 4 Active ezetimibe (Zetia) 10 MG tabletIndications: Mixed hyperlipidemia Take 1 tablet (10 mg) by mouth Once per day. 90 tablet 1 5 025 Active losartan (Cozaar) 50 MG tabletIndications: Essential (primary) hypertension Take 1 tablet (50 mg) by mouth Once per day. 90 tablet 1 5 025 Active pioglitazone (Actos) 30 MG tabletIndications: Type 2 diabetes mellitus with diabetic polyneuropathy, without long-term current use of insulin (CMS/HCC) Take 1 tablet (30 mg) by mouth Once per day. 90 tablet 3 5 026 Active pregabalin (Lyrica) 75 MG capsuleIndications :Type 2 diabetes mellitus with diabetic polyneuropathy, without long-term current use of insulin ([facility]) Take 1 capsule (75 mg) by mouth Once per day. 30 capsule 2 5 Active cyanocobalamin (Vitamin B-12) 500 MCG tabletIndications: Paresthesia of left upper extremity Take 1 tablet (500 mcg) by mouth Once per day. 90 tablet 1 5 Active Active Problems Problem Noted Date Diagnosed Date Thrush 10/31/2023 Overview (10/31/2023): Patient complains of dry mouth today. White coating on tongue. We will prescribe Nystatin oral rinse. Reviewed medication, administration, and possible side effects. Varicose veins of both lower extremities 024 Assessment & Plan (10/31/2023 9:22 AM EDT): Patient with significant varicose, ropey veins in right lower extremity and foot. History of multiple surgeries to this extremity. Patient has first appointment with vascular this week. We will continue to monitor. Tachycardia 10/31/2023 Overview (10/31/2023): Patient slight tachycardic on exam today, pulse 99. She states her heart rate is always fast at home. Normal EKG today, pulse down to 90. Reviewed reasons to seek emergency care. Reviewed reasons to call health center. We will continue to monitor and order stress test if necessary. Osteopenia after menopause 04/04/2023 Overview (04/04/2023): Will repeat Bone density in 2 years Recommend starting Vit D and Calcium Financial insecurity 04/04/2023 Overview (04/04/2023): Working with [employer] Applying to food stamps. Multilevel spine pain 04/04/2023 Overview (04/04/2023): Recommend starting PT COVID 11/25/2022 Assessment & Plan (11/25/2022 2:52 PM EDT): Patient's symptoms are stable. No medication interactions with Paxlovid. Sufficient kidney function to initiate treatment. Lab Results Component Value Date CREATININE 0.7 06/14/2022 . Isolation and masking instructions given. Advised to call if symptoms are worsening. Acute pain of left shoulder 10/27/2022 Overview (10/27/2022): Pain x 1 month with no known inciting event. Worsened after slip in shower last week, hitting shoulder on wall. No LOC/head trauma. Will get Xray. Has been mildly improved with Acetaminophen and Lidocaine. Taking Flexeril once daily - advised to take TID, but not to drive while taking medication. Will trial NSAID - will start Naproxen. Reviewed medication, administration, and potential side effects. Advised to do gentle ROM as tolerated to avoid frozen shoulder, adequate hydration, heat. Follow up with PCP if S/S fail to improve or worsen in any way. Anatomical narrow angle 05/11/2022 Mild anxiety 05/11/2022 Memory change 05/11/2022 Allergic rhinitis 05/11/2022 Adjustment disorder with depressed mood 05/12/19 23 Dyspareunia in female 04/16/2022 Assessment & Plan (04/16/2022 2:12 PM EST): Sexually abstinent x 17 years, recently resumed sexual activity, which was painful and caused approximately 24 hours worth of light to moderate bleeding. Exam unremarkable, with noted tenderness during exam. S/P hysterectomy in 1984. Discussed resuming sexual activity and anatomical changes that may occur post menopause and after extended periods of abstinence. Discussed strategies for alleviating symptoms, lubrication, positioning, etc. Discussed higher risk for jacobo infection with bleeding during sexual intercourse, encouraged condom use and will screen for STIs today. RTC if fails to improve or worsens in any way. Type 2 diabetes mellitus wit h diabetic polyneuropathy, without long-term current use of insulin 03/17/2022 Overview (10/31/2023): A1c up to 8.7% today 10/30 Januvia no longer covered by insurance, not taking. Plan to work on diet and continue with Metformin ASA: yes ARB: yes Statin: NO; caused myalgias Eye exam: 2021 - due Foot exam: 09/20/22; abnormal - almost complete numbness and neuropathy Patient is not open to adding a weekly injectable. We will add Actos 15 mg to regimen today. Reviewed medication, administration, and potential side effects. Encouraged to continue checking BG. Right foot pain 03/17/2022 Essential (primary) hypertension 03/17/2022 Overview (09/20/2022): Managed on Losartan 50mg monotherapy. Last Cr @ 0.7 and GFR @ 97 (06/29) Bp well controlled. Assessment & Plan (04/16/2022 2:16 PM EST): Above goal today, was previously controlled. Discussed treatment options. Will increase Losartan. Reviewed medication, administration, and potential side effects. Hyperlipidemia, unspecified 03/17/2022 Overview (09/20/2022): Unable to tolerate statin d/t myalgias Last LDL well controlled @ 81 (06/29). Assessment & Plan (04/16/2022 2:19 PM EST): Having muscle cramps with Atorvastatin. Last cholesterol level at goal - ok to hold medication at this time. Has follow up with PCP in 2 months - can discuss at that time. Gastro-esophageal reflux disease without esophag itis 03/17/2022 Bilateral carpal tunnel syndrome 03/17/2022 Overview (10/31/2023): 10/20/23 EMG: evidence of bilateral distal medial neuropathies localized at or distal to the wrist as primarily demyelinating in nature that are severe and worse on the right than the left. There is also a sensory axonal element to this. This is compatible with carpal tunnel syndrome. We discussed treatment options today. Patient is splinting left wrist at night. She is not interested in injections or surgery, but would like to talk to specialist about options. We will refer to ortho. Grief reaction 03/17/2022 Overview (12/29/2022): Lost her nephew 02/12/22 from diabetes. Lost long time partner 09/29 - Sudeep Left foot pain 03/17/2022 Overview (03/17/2022): Top of the left foot pain Onychomycosis 03/17/2022 Mild depression 02/18/2022 Fibromyalgia 05/06/2020 Overview (12/29/2022): Continue Cymbalta 30 mg once daily. Continue Lyrica 75 mg PO BID. Primary osteoarthritis of both hands 05/06/2020 Overview (09/20/2022): Continue Cymbalta 30 mg once daily. Continue Tylenol Arthritis 650 mg Take one pill PO every 8 hours as needed. Resolved Problems Problem Noted Date Diagnosed Date Resolved Date Housing instability 03/17/2022 12/30/19 Overview (09/20/2022): Does not qualify for subsidized housing. 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 Situational stress 02/18/2022 Encounters * This document contains information received from the source organization and may not represent a complete record from that organization. Date Type Department Care Team Description 06/07/2024 Telephone [facility] MEDICAL [address] [place] [address] Jason Morales 05/09/2024 Travel 04/27/2024 11:45 AM EDT Office Visit [facility] DENTAL [address] [place] [address] Santino Michaud Jr., DMD 04/27/2024 Telephone [facility] MEDICAL [address] [place] [address] Gianna Payne, DO Mammogram Request 04/25/2024 Travel 04/20/2024 Patient Outreach [facility] MEDICAL [address] [place] [address] Jason Morales 04/17/2024 Telephone [facility] [address] [place] [address] Jason Morales 04/13/2024 11:00 AM EST Office Visit [facility] DENTAL [address] [place] [address] Cecilia Sahni LLD Encounter for dental examination (Primary Dx) 04/12/2024 11:15 AM EST Office Visit [facility] MEDICAL [address] [place] [phone] Gianna Payne DO Type 2 diabetes mellitus with diabetic polyneuropathy, without long-term current use of insulin (CMS/HCC) (Primary Dx); Essential (primary) hypertension; Mixed hyperlipidemia; Paresthesia of left upper extremity; Varicose veins of both lower extremities with pain; Primary osteoarthritis of both hands 04/12/2024 Orders Only [facility] [address] [place] [address] Gianna Payne DO 04/12/2024 Telephone [facility] MEDICAL [address] [place] [phone] Gianna Payne DO 04/10/2024 11:00 AM EST Clinical Support [facility] NUTRITION [address] [place] [phone] Diabetes mellitus due to underlying condition with diabetic neuropathy, without long-term current use of insulin (CMS/HCC) (Primary Dx); Class 1 obesity due to excess calories with serious comorbidity and body mass index (BMI) of 30.0 to 30.9 in adult; Dietary counseling; Exercise counseling 04/10/2024 Refill [facility] MEDICAL [address] [place] [phone] Diamond Vidal FNP from Last 3 Months Immunizations Immunization Administration Dates Next Due Hep B, adult 12/29/2022 INFLUENZA INJECTABLE QUADRIV ALANT CCIIV4 MDCK Multi-dose vial 01/24/2019 Influenza Injectable Quadriv alant Preservative Free IIV4 MDCK 12/29/2022 Influenza injectable quadriv alent preservative free 12/14/2021,12/11/2019 Influenza, IIV3, injectable 12/10/2020,1 ,11/12/2015,11/13,11/14/2013,11/28/2012 Influenza, Split (incl. rivera fied surface antigen) 11/16/2011,11/13/2010,11/14/2009,11/25,11/14/2008,11/21/2007 Influenza, trivalent, adjuvanted 01/13/2024 Moderna Covid-19 Vaccine 12+ 12/29/2022 Pneumococcal Polysaccharide PPSV23 03/27/2013 TD (adult), 2 Lf tetanus tox oid, preservative free, adsorbed 06/14/2022,11/21/2007 Tdap 11/16/2011 Family History Medical History Relation Name Comments Handicaped, blind Brother Glaucoma Father Heart attack Father Macular degeneration Mother Cataracts Neg Hx Relation Name Status Comments Brother Father Mother Social History Tobacco Use Types Packs/Day Years Used Date Smoking Tobacco: Former Cigarettes Passive Smoke Exposure: Past Smokeless Tobacco: Never Tobacco Cessation:Counseling Given: Not Answered Alcohol Use Standard Drinks/Week Comments Never 0 [...] 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 Not on file Not on file Last Filed Vital Signs Vital Sign Reading Time Taken Comments Blood Pressure 126/79 04/12/2024 11:22 AM EST Pulse 96 04/12/2024 11:22 AM EST Temperature 36.2 ??C (97.2 ??F) 04/12/2024 11:[address] Respiratory Rate 16 07/11/2023 3:37 PM EDT Oxygen Saturation 99% 04/12/2024 11:22 AM EST Inhaled Oxygen Concentration - - Weight 72.6 kg (160 lb) 04/12/2024 11:22 AM EST Height 154.9 cm (5' 1 ) 04/12/2024 11:22 AM EST Body Mass Index 30.23 04/12/2024 11:22 AM EST Plan of Treatment Upcoming Encounters Date Type Department Care Team (Late st Contact Info) Description 06/26/2024 10:45 AM EDT Clinical Support [facility] NUTRITION [address] [place] [address] Kemi Onofre, RD [address] [place] [address] 07/13/2024 11:15 AM EDT Office Visit [facility] MEDICAL [address] [place] [address] Gianna Payne, DO [address] [place] [address] 08/29/2024 11:00 AM EDT Office Visit [facility] OPTOMETRY [address] [place] [address] Brie Mena, OD [address] [place] [address] 10/19/2024 11:00 AM EDT Office Visit [facility] DENTAL [address] [place] [address] Loree Cote Health Maintenance Due Date Last Done Comments CT Colonography 1957 FIT DNA/Cologuard 1957 FIT 1957 FOBT 1957 Sigmoidoscopy 1955 Zoster Vaccines (1 of 2) 09/23/2007 Pneumococcal Vaccine: 50+ Years (2 of 2 - PCV) 03/27/2014 03/27/2013 Hepatitis B Vaccines (2 of 3 - 19+ 3-dose series) 01/26/2023 12/29/2022 COVID-19 Vaccine ( season) 2023 12/29/2022, 04/28/2021, 04/11/2020, Additional history exists Dental X-Ray: Bitewings 04/21/2024 04/21/19 24, 10/14/2022, 10/23/2021, Additional history exists Diabetes: Foot Exam 07/10/2024 07/11/2023, 07/11/2023, 07/11/2023, Additional history exists Diabetes: Urine Protein Screening 07/12/2024 07/13/2023, 06/14/2022, 12/30/2021, Additional history exists Diabetes: Hemoglobin A1C 07/13/2024 025, 01/13/2024, 10/31/2023, Additional history exists Dental Oral Exam 10/15/2024 04/13/2024, , 10/14/2022, Additional history exists Dental Prophylaxis 10/15/2024 04/13/2024, 0 04/21/2023, 10/14/2022, Additional history exists Alcohol/Substance Use Screening 10/30/2024 10/31/2023 Depression Screening 11/20/2024 11/21/2023, 11/21/19 24 Lipid Panel 01/12/2025 01/13/2024, 06/0 06/2023, 06/14/2022, Additional history exists SDOH Screening 04/12/2025 04/12/2024 Tobacco Screening 04/13/2025 04/13/2024 Eye Exam 12/07/2025 12/08/2023, 11/09, 12/08/2023, Additional history exists Dental X-Ray: Full Mouth 04/21/2026 024, 04/20/2017, 08/15/2012, Additional history exists Mammogram 05/26/2026 05/26/2024, 0410/2024, 07/31/2021, Additional history exists DTaP/Tdap/Td Vaccines (3 - Td or Tdap) 06/14/2032 06/14/2022, 11/16/2011, 11/21/2007 Colonoscopy 07/15/2032 07/15/2022, 02/08, 03/05/2008 Colorectal Cancer Screening 07/15/2032 RSV Patients and Patients Aged 60 years or older (1 - 1-dose 75+ series) 2032 Pap Smear Discontinued 01/17/2008 Hepatitis C Screening Completed 04/16/2022, 016 Influenza Vaccine Completed 01/13/2024, , 12/14/2021, Additional history exists Cervical Cancer Screening Discontinued HIB Vaccines Aged Out No longer eligi ble based on patient's age to complete this topic HPV Vaccines Aged Out No longer eligi ble based on patient's age to complete this topic HPV/Cotest Discontinued Hepatitis A Vaccines Aged Out No long er eligible based on patient's age to complete this topic IPV Vaccines Aged Out No longer eligi ble based on patient's age to complete this topic Meningococcal B Vaccine Aged Out No l onger eligible based on patient's age to complete this topic Meningococcal Vaccine Aged Out No gena sunita eligible based on patient's age to complete this topic RSV under 20 months Aged Out No longe r eligible based on patient's age to complete this topic Rotavirus Vaccines Aged Out No longer eligible based on patient's age to complete this topic Procedures Procedure Name Priority Date/Time Associated Diagnosis Comments BI MAMMOGRAM SCREENING TOMOSYNTHESIS BILATERAL Routine 05/26/2024 8:37 AM EDT BI MAMMOGRAM SCREENING BILATERAL Routine 05/26/2024 Breast cancer screening by mammogram NO CHARGE EXAM AND CONSULTATION Routine 04/27/2024 11:45 AM EDT ORAL HYGIENE INSTRUCTIONS Routine 04/13/2024 11:00 AM EST Full PROPHYLAXIS - ADULT Routine 04/13/2024 11:00 AM EST PERIODIC ORAL EVALUATION - ESTABLISHED PATIENT Routine 04/13/2024 11:00 AM EST POCT GLYCOSYLATED HEMOGLOBIN (HGB A1C) Routine 04/12/2024 12:56 PM EST Type 2 diabetes mellitus with diabetic polyneuropathy, without long-term current use of insulin (CMS/HCC) LIPID PANEL, STANDARD Routine 01/13/2024 11:33 AM EST Type 2 diabetes mellitus with diabetic polyneuropathy, without long-term current use of insulin (CMS/HCC) ALBUMIN/CREATININE RATIO, RANDOM URINE Routine 07/13/2023 9:10 AM EDT Type 2 diabetes mellitus with diabetic polyneuropathy, without long-term current use of insulin (CMS/HCC) INTRAORAL - COMPLETE SERIES OF RADIOGRAPHIC IMAGES Routine 04/21/2023 11:00 AM EDT HM COLONOSCOPY Routine 07/15/2022 HEPATITIS C ANTIBODY W/RFLX HCV QUANT PCR AND GENOTYPE Routine 04/16/2022 11:49 AM EST Screen for STD (sexually transmitted disease) HM PAP/HPV Routine 01/17/2008 from Last 3 Months or Most Recently Relevant to Health Maintenance Results * BI Mammogram Screening Tomosynthesis Bilateral (05/26/2024 8:37 AM EDT) Anatomical Region Laterality Modality Breast Bilateral Mammography 05/26/2024 8:37 AM EDT Narrative 05/26/2024 4:36 PM EDT PROCEDURE: MM Digital Mammo Screening INDICATION: Screening for breast cancer. No known palpable abnormalities. COMPARISON: [facility] dating back to 12/20/2019. TECHNIQUE: Full-field digital CC and MLO 3D tomosynthesis images of both breasts were acquired. Computer-aided detection (CAD) was utilized in the interpretation of this study. DENSITY: There are scattered areas of fibroglandular density. FINDINGS: No suspicious masses, suspicious microcalcifications, or areas of architectural distortion are seen in either breast to suggest malignancy. IMPRESSION: No mammographic evidence of malignancy. RECOMMENDATION: Annual mammographic screening BI-RADS: 1 (Negative) Lay letter mailed to patient WSN: [id number] Ordering Physician: Gianna Payne Dictated By: ?Jaci Hackett MD, I Dictated Date/Time: ?05/26/24 4:32 pm Reviewed By: ?Jaci Hackett MD, I Signed By: ? Jaci Hackett MD, I Signed Date/Time: ? 05/26/24 4:32 pm Transcribed By: ? CSB Airplane Flight Attendant Date/Time: ? 05/26/24 4:31 pm Birads: Procedure Note Donotuseinterpreter, Image - 05/26/2024 PROCEDURE: MM Digital Mammo Screening INDICATION: Screening for breast cancer. No known palpableabnormalities. COMPARISON: Snyder dating back to 12/20/2019. TECHNIQUE: Full-field digital CC and MLO 3D tomosynthesis images of bothbreasts were acquired. Computer-aided detection (CAD) was utilized in theinterpretation of this study. DENSITY: There are scattered areas of fibroglandular density. FINDINGS: No suspicious masses, suspicious microcalcifications, or areasof architectural distortion are seen in either breast to suggestmalignancy. IMPRESSION: No mammographic evidence of malignancy. RECOMMENDATION: Annual mammographic screening BI-RADS: 1 (Negative) Lay letter mailed to patient WSN: [id number] Ordering Physician: Gianna Payne Dictated By: Jaci Hackett MD, I Dictated Date/Time: 05/26/24 4:32 pm Reviewed By: Jaci Hackett MD, I Signed By: Jcai Hackett MD, I Signed Date/Time: 05/26/24 4:32 pm Transcribed By: JEANNETTE Airplane Flight Attendant Date/Time: 05/26/24 4:31 pm Birads: us Gianna Payne DO IMG BI PROCEDURES Final Result * BI Mammogram Screening Bilateral (05/26/2024) Anatomical Region Laterality Modality Breast Bilateral Mammography us Gianna Payne DO IMG BI PROCEDURES Final Result * (ABNORMAL) POCT glycosylated hemoglobin (Hgb A1c) (04/12/2024 12:56 PM EST) Hemoglobin A1C 7.7(A) 4.0 - 6.0 % Blood Capillary blood specimen / Unknown 04/12/2024 12:56 PM EST us Gianna Payne DO POINT OF CARE TEST ENTER/EDIT ORDERABLES Final Result * (ABNORMAL) Lipid Panel, Standard (01/13/2024 11:33 AM EST) Cholesterol, Total 179 100 - 199 mg/dL [facility] Triglycerides 180(H) 0 - 149 mg/dL [facility] HDL Cholesterol 58 >39 mg/dL [facility] VLDL Cholesterol Boo 31 5 - 40 mg/dL [facility] LDL Chol Calc (NIH) 90 0 - 99 mg/dL [facility] 1 Blood Venous blood specimen / Unknown 01/13/2024 11:33 AM EST 01/13/2024 Narrative [facility] 1 - 01/14/2024 6:05 AM EST Performed at: ??01 - [facility] [address] [place], [place] ??[id number] Supervisor Forming And Tempering: Wendi Crawley MD, Phone: ??[phone] us Gianna Payne DO LAB BLOOD ORDERABLES Final Res ult [facility] * Microalbumin [id number] (07/13/2023 9:10 AM EDT) Creatinine, Random Urine 112.2 Not Estab. mg/dL [facility] 1 Albumin, Urine 8.3 Not Estab. ug/mL [facility] 1 Albumin/Creatini ne Ratio 7 0 - 29 mg/g creat [facility] Comment: ? Normal: ?0 - ??29 ? Moderately increased: 30 - 300 ? Severely increased: ? >300 Urine (Urine, Random) 07/13/2023 9:10 AM EDT 07/13/2023 Narrative [facility] 1 - 07/14/2023 12:05 PM EDT Performed at: ??01 - [facility] [address] [place], [place] ??[id number] Supervisor Forming And Tempering: Wendi Crawley MD, Phone: ??[phone] us Sujey Rapp SUPPLY MANAGER LAB URINE ORDERABLES F inal Result [facility] 1 * Colonoscopy (07/15/2022) Colonoscopy Normal Normal Historical Provider HEALTH MAINTENANCE Final Result * Hepatits C Antibody w/Reflex HCV Quant PCR and Genotyping (04/16/2022 11:49 AM EST) Hepatitis C Virus Ab, Serum NEGATIVE (NEG) [facility] Comment: Reference range: Negative This test was performed on the Moontoast immunoassay system. Testing performed or reported by [facility], a Service of [facility], [address] [place] [address] Yury Escalante MD, Supervisor Floor Assembly [facility]# [id number] 04/16/2022 11:4 9 AM EST 04/16/2022 11:51 AM EST Diamond Vidal SUPPLY MANAGER LAB BLOOD ORDERABLES Final Resul t Performing Organization Address City/[facility]/ZIP Co de Phone Number [facility] [address] [place] [address] * Pap Smear (01/17/2008) Pap smear Negative Historical Provider HEALTH MAINTENANCE Final Result from Last 3 Months or Most Recently Relevant to Health Maintenance Insurance MEDICARE [facility] [address] FULL DENTAL - HSN FULL (MEDICAID) Care Teams [employer] Developer Relationship Specialty Start Date End Date Gianna Payne DO [address] [facility] [place] [address] PCP - General Family Medicine 04/12/24 Demi Mckenna Community Health Worker 06/07/[address] [place] [address] Dietitian Dietitian 07/06/22 Sonia Garcia, UNIT CLERK [address] [place] [address] [employer]seed [employer] Press[employer] Behavioral Health 07/06/22 Jason Morales Health Navigator 07/20/18
--- OUTSIDE RECORDS SUMMARY | 2024-06-21 15:33 | XMS_ITS | Encounter Summary ---
Author Organization [employer] Address [address] [facility] [address] [facility] [address] [place] [address] Care Team Providers Care Senior Buyer Planner Name Role Phone Bala, Demi Unavailable Unavailable Kemi Onofre RD Unavailable [phone] Apoorva Garciaalthea JERRYSW Unavailable [phone] Jason Morales Unavailable Unavailable Diamond Vidal Primary Care Provider [phone] Gianna Payne DO Primary Care Provider [phone] Encounter Details Date Type Department Care Team (Late st Contact Info) Description 11/30/2023 Orders Only [facility] MEDICAL [address] [place] [address] Diamond Vidal FNP [address] [place] [address] Social History Tobacco Use Types Packs/Day Years [...] 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 [address] Brie Mena OD [address] [place] [address] 10/19/2024 11:00 AM EDT Office Visit [facility] DENTAL [address] [place] [address] Loree Cote documented as of this encounter Visit Diagnoses Not on filedocumented in this encounter Additional Health Concerns Assessment Noted Time PHQ-9 Depression Total Score: 7 11/21/19 24 10:22 AM EDT documented as of this encounter Care Teams Senior Buyer Planner Relationship Specialty Start Date End Date Diamond Vidal FNP [address] [place] [address] [place] [address] PCP - General Family Medicine 10/31/23 04/11/24 [place] [address] PCP - General Family Medicine 04/12/24 Demi Mckenna Community Health Worker 06/07/[address] [place] [address] [place] [address] Dietitian Dietitian 07/06/22 Sonia Garcia [facility] [address] [facility] [place] [address] Change Management Behavioral Health 07/06/22 Jason Morales Health Navigator 07/20/18 documented as of this encounter
--- OUTSIDE RECORDS SUMMARY | 2024-06-21 15:33 | XMS_ITS | Encounter Summary ---
Author Organization [employer] Address [address] [facility] 7 [place] [address] Care Team Providers Care Science And Operations Officer Name Role Phone Sujey Rapp [facility] Primary Care Provider Unavailable Demi Mckenna Unavailable Unavailable Kemi Onofre RD Unavailable [phone] Sonia Garcia [facility] Unavailable [phone] Jason Morales Unavailable Unavailable Diamond Vidal [facility] Primary Care Provider [phone] Gianna Payne DO Primary Care Provider [phone] Encounter Details Date Type Department Care Team (Latest Contact Info) Description 05/30/2020 Abstract [facility] CONVERSIONS Dental, Provider, DDS Social [...] 06/26/2024 10:45 AM EDT Clinical Support [facility] NUTRITION [address] [place] [address] [place] [address] 07/13/2024 11:15 AM EDT Office Visit [facility] MEDICAL [address] [place] [address] Gianna Payne DO [address] [place] [address] 08/29/2024 11:00 AM EDT Office Visit [facility] OPTOMETRY [address] [place] [address] Brie Mena, OD [address] [place] [address] 10/19/2024 11:00 AM EDT Office Visit [facility] DENTAL [address] [place] [address] Loree Cote documented as of this encounter Visit Diagnoses Not on filedocumented in this encounter Care Teams Science And Operations Officer Relationship Specialty Start Date End Date Sujey Rapp FNP PCP - General Family Medicine 03/12/22 10/30/23 Diamond Vidal FNP [address] [place] [address] PCP - General Family Medicine 10/31/23 04/11/24 Gianna Payne DO [address] [place] [address] PCP - General Family Medicine 04/12/24 Demi Mckenna Community Health Worker 06/07/[address] [place] [address] Dietitian Dietitian 07/06/22 Sonia Garcia LICSW [address] [place] [address] Frame Pulley Mortising Machine Operator Behavioral Health 07/06/22 Jason Morales Health Navigator 07/20/18 documented as of this encounter
--- OUTSIDE RECORDS SUMMARY | 2024-06-21 15:33 | XMS_ITS | Encounter Summary ---
Author Organization [employer] Address [address] [facility] [address] 7[address] [place] [address] Care Team Providers Care Drill Bit Sharpener Name Role Phone Sujey Rapp Primary Care Provider Unavailable Demi Mckenna Unavailable Unavailable Kemi Onofre RD Unavailable [phone] Sonia GarciaSW Unavailable [phone] Jason Morales Unavailable Unavailable Diamond Vidal Primary Care Provider [phone] Ginana Panye DO Primary Care Provider [phone] Reason for Visit * Reason Onset Date Comments Med Refill 07/23/2023 Encounter Details Date Type Department Care Team (Late st Contact Info) Description 07/23/[address] 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 * Telephone Encounter - Alexandrea Huynh - 07/23/2023 9:09 AM EDT Patient called asking for medication refill on linaGLIPtin (Tradjenta) 5 MG tablet [[id number]] cyclobenzaprine (Flexeril) 5 MG tablet [[id number]] [id number] [facility] [id number] documented in this encounter Plan of Treatment Upcoming Encounters Date Type Department Care Team (Late st Contact Info) Description 06/26/2024 10:45 AM EDT Clinical Support [facility] NUTRITION [address] [place] [address] Kemi Onofre, RD 73 [place] [address] 07/13/2024 11:15 AM EDT Office Visit [facility] MEDICAL [address] [place] [address] Gianna Payne DO 73 [place] [address] 08/29/2024 11:00 AM EDT Office Visit [facility] OPTOMETRY [address] [place] [address] Brie Mena, OD [address] [place] [address] 10/19/2024 11:00 AM EDT Office Visit [facility] DENTAL [address] [place] [address] Loree Cote documented as of this encounter Visit Diagnoses Diagnosis Type 2 diabetes mellitus with diabetic polyneuropathy, without long-term current use of insulin ([facility]) Fibromyalgia Unspecified myalgia and myositis documented in this encounter Care Teams Drill Bit Sharpener Relationship Specialty Start Date End Date Sujey Rapp FNP PCP - General Family Medicine 03/12/22 10/30/23 Diamond Vidal FNP [address] [place] [address] PCP - General Family Medicine 10/31/23 04/11/24 Gianna Payne DO [address] [place] [address] PCP - General Family Medicine 04/12/24 Demi Mckenna Community Health Worker 06/07/[address] [facility] [place] [address] Dietitian Dietitian 07/06/22 Sonia Garcia LICSW 73 [facility] [place] [address] Accuracy Expert Behavioral Health 07/06/22 Jason Morales Health Navigator 07/20/18 documented as of this encounter
[2024-06-21 15:39] VITALS: BP 120/71; PULSE 80; RESP 18; TEMP 36.6; O2SAT 97
[2024-06-21] MEDS: 0.9 % Sodium Chloride 1,000 ML 999 ML IV (15:39)
[2024-06-21] MEDS: Ketorolac Tromethamine 15 MG/ML VIAL IVPUSH (15:39)
[2024-06-21 15:59] LABS: Erythrocyte Sedimentation Rate 27 MM/HR (0-20)
[2024-06-21] MEDS: iohexoL 350 MG/ML 100 ML INFUS..BTL IV (17:43)
[2024-06-21 18:47] VITALS: BP 128/53; PULSE 90; RESP 16; TEMP 36.8; O2SAT 97
== END 2024-06-21 18:48 | disposition home or self-care (01) ==
PROVIDERS: Physician Assistant; Emergency Provider Emergency Medicine; PCP Family Medicine
DX: M54.2 Cervicalgia (principal); R13.10 Dysphagia, unspecified; H92.02 Otalgia, left ear; Z03.818 Encounter for observation for suspected exposure to other biological agents ruled out
CPT/HCPCS: 0241U; 36415; 70491; 80048; 84443; 85025; 85652; 86140; 87651; 96361; 96374; 99283; 99284; J1885; Q9967

== ENCOUNTER → 2024-06-21 15:11 | Outpatient (BNV) | payer MEDICARE, MEDICAID, SELFPAY | PROVIDERS: Emergency Provider Emergency Medicine; PCP Family Medicine; Visit Provider Radiology Diagnostic Radiology | DX: M54.2 Cervicalgia (principal); R22.1 Localized swelling, mass and lump, neck; R13.10 Dysphagia, unspecified | CPT/HCPCS: 70491 ==

== ENCOUNTER 2024-07-05 15:03 | Outpatient (AMB) | payer MEDICARE, MEDICAID, SELFPAY ==
--- NOTE | 2024-07-05 15:07 | MHC.OFFVIS ---
Intake Visit Reasons: Follow Up 06/21 [facility] Carotid Stenosis Intake Note: Patient presents for [facility] follow up. Patient was experiencing neck pain and painful swallowing. She had a CT of the neck while at ED. Accompanied by: Self / Same As Patient Allergies adhesive tape [ADHESIVE TAPE] Allergy (Unknown, Verified 07/05/24 15:11) RASH amitriptyline [AMITRIPTYLINE] Allergy (Unknown, Verified 07/05/24 15:11) NAUSEA,GI UPSET milnacipran [From SAVELLA] Allergy (Unknown, Verified 07/05/24 15:11) BLURRED VISION silver [From TEGADERM AG MESH] Allergy (Unknown, Verified 07/05/24 15:11) RASH Adhesive Tape Allergy (Unknown, Uncoded 04/02/22 16:31) Rash Tegaderm Allergy (Unknown, Uncoded 04/02/22 16:31) Rash HPI HPI Follow Up 06/21 [facility] Carotid Stenosis: Details: The patient is a 68-year-old female presenting with complaints of neck pain and painful swallowing. She initially sought emergency care for left-sided neck pain and dysphagia that began in March or April. The pain has been severe enough to necessitate the cancellation of a dental appointment. Imaging identified an abnormality on the right side of the neck, despite her primary symptoms being on the left. The patient reports persistent symptoms, including dry mouth and cough, and experiences exacerbation of pain when swallowing. Previous evaluations included a CT scan, dated 06/22/2023. Of note she has had a right carotid endarterectomy back in 2003. [facility] Medical History No pertinent past medical history Surgical History History of cholecystectomy H/O: hysterectomy Family History Father Hypertension Mother Lymphoma Social History Household Members: Friend(s) Housing: House Alcohol intake: never Patient Tobacco Use Status: Never used Tobacco Review of Systems Const All systems reviewed & are unremarkable except as noted in HPI and below Reports no additional complaints ENT Reports Normal hearing present Card Denies chest pain, Denies chest pain at rest, Denies chest pain with activity and Denies pedal edema Resp Denies cough GI Denies abdominal pain Musc Denies abnormal gait, Denies muscle cramps and Denies radiating pain into limb Skin/Breast Denies skin ulcer and Denies wounds Neuro Reports Normal hearing present and Denies abnormal gait Psych Reports no additional complaints Physical Exam Const General: cooperative, healthy appearing and comfortable Orientation/consciousness: oriented to person, oriented to place and oriented to time HEENT Head: Yes normal to inspection Neck Neck: Yes normal visual inspection Carotids: no bruits Chest Chest palpation & inspection: normal inspection of the chest Resp Effort & Inspection: normal respiratory effort and able to speak in complete sentences Auscultation: clear to auscultation bilaterally, no crackles, no rales, no rhonchi and no wheezes Cardio Rate: regular rate Rhythm: regular rhythm Heart sounds: S1 normal heart sound present and S2 normal heart sound present Bruits: no carotid bruits Peripheral pulses: Peripheral pulses 2+ throughout GI Inspection: Yes normal to inspection Skin Wounds: no wounds Hair: normal Neuro General: oriented to person, oriented to place and oriented to time Cranial nerves: Yes CN's II-XII intact bilaterally and Yes Normal hearing present Cognition (Neuro): normal cognition Motor exam (neuro): 5/5 motor strength present throughout Extrem Other: venous exam: No significant superficial varicosities or spider telangiectasias, minimal edema General: No clubbing, No cyanosis and No edema Psych Appearance: grossly normal Mental Status: mental status grossly normal Speech and movement: Normal speech and movement present Assessment & Plan Assessment & Plan (1) Bilateral carotid artery stenosis: Comment: Right carotid endarterectomy 2003 in [facility] Code(s): I65.23 - Occlusion and stenosis of bilateral carotid arteries Category: Medical Plan: I discussed with the patient the importance of conducting a baseline ultrasound to assess the vascular condition of the neck, given her history of carotid endarterectomy and current symptoms. I informed her that the CT scan appears unremarkable and reassured her there is no immediate concern. I explained the potential findings of the ultrasound and the steps we might take depending on the results. We scheduled the ultrasound for July 18, and I instructed the patient to return for a follow-up visit to review the findings. I also discussed the rationale for these diagnostic steps, emphasizing the significance of her surgical history and current symptoms. The patient was informed about the benefits of early detection and intervention, and she agreed to the proposed plan. Coding Level of Care Code Est Pt Level 4 (26528) Diagnoses Bilateral carotid artery stenosis I65.23
== END 2024-07-05 15:44 | disposition home or self-care (01) ==
LOC: HO.HVS 15:04
PROVIDERS: PCP Family Medicine; Visit Provider Surgery Vascular Surgery
DX: I65.23 Occlusion and stenosis of bilateral carotid arteries (principal)
CPT/HCPCS: 99214

== ENCOUNTER → 2024-07-05 15:03 | Outpatient (BNVA) | payer MEDICARE, MEDICAID, SELFPAY | PROVIDERS: PCP Family Medicine; Visit Provider Surgery Vascular Surgery | DX: I65.23 Occlusion and stenosis of bilateral carotid arteries (principal) | CPT/HCPCS: 99212 ==

== ENCOUNTER 2024-07-18 15:25 | Outpatient (REF) | payer MEDICARE, MEDICAID, SELFPAY ==
--- NOTE | ~2024-07-18 | US_ITS ---
EXAMINATION: BILATERAL CAROTID ULTRASOUND WITH DOPPLER HISTORY: STENOSIS OF RT CAROTID COMPARISON: There are no prior studies available for comparison. TECHNIQUE: Real time and Color and Spectral doppler ultrasonography of the carotid and vertebral arteries was performed in multiple planes. FINDINGS: There is a moderate amount of calcified plaque in the right carotid bulb and a mild amount on the left. The patient was tachycardic during the examination. VERTEBRAL FLOW DIRECTION: Antegrade bilaterally. PEAK SYSTOLIC VELOCITIES (in cm/sec): RIGHT: CCA: Prox: 82.9 Dist: 79.0 ICA: Prox: 97.4 Mid: 90.4 Dist: 88.3 ICA/CCA Ratio: 1.17 ECA: 95.1 Peak ICA end diastolic velocity (EDV): 42.0 LEFT: CCA: Prox: 95.1 Dist: 78.9 ICA: Prox: 80.1 Mid: 81.4 Dist: 85.1 ICA/CCA Ratio: 0.89 ECA: 98.8 Peak ICA end diastolic velocity (EDV): 39.8 US/US carotid duplex BI IMPRESSION: 1. Findings consistent with 0-49% stenosis of the bilateral internal carotid arteries. 2.Tachycardia. Electronically signed by: Lalo Gaines MD 07/19/2024 07:20 AM EDT
--- OUTSIDE RECORDS SUMMARY | 2024-07-18 17:46 | XMS_ITS | Encounter Summary ---
Author Organization [employer] Address [address] [facility] 7t [place] [address] Care Team Providers Care State [employer] Agent Name Role Phone Sujey Rapp Primary Care Provider Unavailable Demi Mckenna Unavailable Unavailable Kemi Onofre RD Unavailable [phone] Sonia GarciaSW Unavailable [phone] Jason Morales Unavailable Unavailable Diamond Vidal Primary Care Provider [phone] Gianna Payne DO Primary Care Provider [phone] Reason for Visit * Reason Onset Date Comments Med Refill 07/23/2023 Encounter Details Date Type Department Care Team (Late st Contact Info) Description 07/23/2023 Refill [facility] MEDICAL [address] [place] [address] Sujey Rapp FNP Type 2 diabetes mellitus with diabetic polyneuropathy, without long-term current use of insulin ([facility]); Fibromyalgia Social History Tobacco Use Types Packs/Day [...] the past 12 months, has t he [employer], [employer], oil or water [employer] threatened to shut off services in your [...] 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 Not on file Not [...] refill on linaGLIPtin (Tradjenta) 5 MG tablet [[id number]] cyclobenzaprine (Flexeril) 5 MG tablet [[id number]] [id number] [facility] [id number] documented in this encounter Plan of Treatment Upcoming Encounters Date Type Department Care Team (Late st Contact Info) Description 07/30/2024 12:15 PM EDT Clinical Support [facility] NUTRITION [address] [place] [address] Kemi Onofre, RD 73 [place] [address] 08/29/2024 11:00 AM EDT Office Visit [facility] OPTOMETRY [address] [place] [address] Brie Mena, OD [address] [place] [address] 10/15/2024 10:45 AM EDT Office Visit [facility] MEDICAL [address] [place] [address] Gianna Payne DO 73 [place] [address] 10/19/2024 11:00 AM EDT Office Visit [facility] DENTAL [address] [place] [address] Loree Cote documented as of this encounter Visit Diagnoses Diagnosis Type 2 diabetes mellitus with diabetic polyneuropathy, without long-term current use of insulin ([facility]) Fibromyalgia Unspecified myalgia and myositis documented in this encounter Care Teams State Farm Agent Relationship Specialty Start Date End Date Sujey Rapp FNP PCP - General Family Medicine 03/12/22 10/30/23 Diamond Vidal FNP [address] [place] [address] PCP - General Family Medicine 10/31/23 04/11/24 Gianna Payne DO [address] [place] [address] PCP - General Family Medicine 04/12/24 Demi Mckenna Community Health Worker 06/07/[address] [place] [address] Dietitian Dietitian 07/06/22 Sonia Garcia LICSW [address] [place] [address] Wafer Polishing Lead Worker Behavioral Health 07/06/22 Jason Morales Health Navigator 07/20/18 documented as of this encounter
== END 2024-07-18 15:26 | disposition home or self-care (01) ==
LOC: HO.US 15:25
PROVIDERS: PCP Family Medicine; Visit Provider Family Medicine
DX: I65.21 Occlusion and stenosis of right carotid artery (principal)
CPT/HCPCS: 93880

== ENCOUNTER → 2024-07-18 15:54 | Outpatient (BNV) | payer MEDICARE, MEDICAID, SELFPAY | PROVIDERS: PCP Family Medicine; Visit Provider Radiology Diagnostic Radiology | DX: I65.23 Occlusion and stenosis of bilateral carotid arteries (principal); R00.0 Tachycardia, unspecified | CPT/HCPCS: 93880 ==

== ENCOUNTER 2024-07-24 14:54 | Outpatient (AMB) | payer MEDICARE, MEDICAID, SELFPAY ==
--- NOTE | 2024-07-24 15:02 | MHC.OFFVIS ---
Intake Visit Reasons: follow up s/p Carotid US 07/18/24 Intake Note: Patient presents for follow up carotid s/p US performed on 07/18/24. Mild pain on the left side of head and neck after the US, no pain as of now. Allergies adhesive tape [ADHESIVE TAPE] Allergy (Unknown, Verified 07/24/24 15:04) RASH amitriptyline [AMITRIPTYLINE] Allergy (Unknown, Verified 07/24/24 15:04) NAUSEA,GI UPSET milnacipran [From SAVELLA] Allergy (Unknown, Verified 07/24/24 15:04) BLURRED VISION silver [From TEGADERM AG MESH] Allergy (Unknown, Verified 07/24/24 15:04) RASH Adhesive Tape Allergy (Unknown, Uncoded 04/02/22 16:31) Rash Tegaderm Allergy (Unknown, Uncoded 04/02/22 16:31) Rash HPI HPI follow up s/p Carotid US 07/18/24: Details: Very pleasant 68-year-old female presents for hospital follow-up for left neck pain and swallowing discomfort. She had to cancel a dental appointment. She has had voice issues and is actually scheduled for evaluation by ENT. She now presents for routine follow-up regarding her carotids. During her hospitalization she did undergo carotid ultrasound. [facility] Medical History No pertinent past medical history Surgical History History of cholecystectomy H/O: hysterectomy Family History Father Hypertension Mother Lymphoma Social History Household Members: Friend(s) Housing: House Alcohol intake: never Patient Tobacco Use Status: Never used Tobacco Review of Systems Const All systems reviewed & are unremarkable except as noted in HPI and below Reports no additional complaints ENT Reports Normal hearing present Card Denies chest pain, Denies chest pain at rest, Denies chest pain with activity and Denies pedal edema Resp Denies cough GI Denies abdominal pain Musc Denies abnormal gait, Denies muscle cramps and Denies radiating pain into limb Skin/Breast Denies skin ulcer and Denies wounds Neuro Reports Normal hearing present and Denies abnormal gait Psych Reports no additional complaints Physical Exam Const General: cooperative, healthy appearing and comfortable Orientation/consciousness: oriented to person, oriented to place and oriented to time HEENT Head: Yes normal to inspection Neck Neck: Yes normal visual inspection Carotids: no bruits Chest Chest palpation & inspection: normal inspection of the chest Resp Effort & Inspection: normal respiratory effort and able to speak in complete sentences Auscultation: clear to auscultation bilaterally, no crackles, no rales, no rhonchi and no wheezes Cardio Rate: regular rate Rhythm: regular rhythm Heart sounds: S1 normal heart sound present and S2 normal heart sound present Bruits: no carotid bruits Peripheral pulses: Peripheral pulses 2+ throughout GI Inspection: Yes normal to inspection Skin Wounds: no wounds Hair: normal Neuro General: oriented to person, oriented to place and oriented to time Cranial nerves: Yes CN's II-XII intact bilaterally and Yes Normal hearing present Cognition (Neuro): normal cognition Motor exam (neuro): 5/5 motor strength present throughout Extrem Other: venous exam: No significant superficial varicosities or spider telangiectasias, minimal edema General: No clubbing, No cyanosis and No edema Psych Appearance: grossly normal Mental Status: mental status grossly normal Speech and movement: Normal speech and movement present Results Reviewed Results Reviewed: Carotid testing dated 07/18/2024 demonstrates bilateral 0-49% stenosis. Written report and images were reviewed. Assessment & Plan Assessment & Plan (1) Bilateral carotid artery stenosis: Comment: Right carotid endarterectomy 2003 in [facility] Code(s): I65.23 - Occlusion and stenosis of bilateral carotid arteries Category: Medical Plan: In short patient has asymptomatic carotid disease. We have reviewed signs and symptoms of a stroke. We also discussed risk factor modification inclusive a healthy diet low in cholesterol. The patient will follow up with us with surveillance ultrasound of the carotids 1 year. Should there be any changes or signs or symptoms of a stroke we will be happy to see them back sooner. Thank you for allowing us to participate in this patient's care. If there are any questions or concerns please do not hesitate to contact us. (2) Varicose veins of left lower extremity with inflammation: Comment: 10/28/2015 left leg endovenous laser therapy. Code(s): I83.12 - Varicose veins of left lower extremity with inflammation Category: Medical Plan: Stable (3) Varicose veins of right lower extremity with inflammation: Comment: 01/09/2016 - operative right lower extremity microphlebectomy Code(s): I83.11 - Varicose veins of right lower extremity with inflammation Category: Medical Plan: Stable Orders: Orders US carotid duplex BI 1 Year I65.23 - Occlusion and stenosis of bilateral carotid arteries Coding Level of Care Code Est Pt Level 4 (18863) Diagnoses Bilateral carotid artery stenosis I65.23 Varicose veins of left lower extremity with inflammation I83.12 Varicose veins of right lower extremity with inflammation I83.11
--- OUTSIDE RECORDS SUMMARY | 2024-07-24 17:17 | XMS_ITS | Encounter Summary ---
Author Organization [employer] Address [address] [place] [address] Care Team Providers Care Director Global Strategic Publisher Sales Name Role Phone Sujey Rapp Primary Care Provider Unavailable Demi Mckenna Unavailable Unavailable Kemi Onofre RD Unavailable [phone] Sonia GarciaSW Unavailable [phone] Jason Morales Unavailable Unavailable Diamond Vidal Primary Care Provider [phone] Gianna Payne DO Primary Care Provider [phone] Reason for Visit * Reason Onset Date Comments Med Refill 07/23/2023 Encounter Details Date Type Department Care Team (Late st Contact Info) Description 07/23/2023 Refill [employer] [facility] [address] [place] [address] Sujey Rapp FNP Type 2 diabetes mellitus with diabetic polyneuropathy, without long-term current use of insulin ([facility]); Fibromyalgia Social History Tobacco Use Types Packs/Day [...] the past 12 months, has t he [employer], oil or water [employer] threatened to shut off services in your [...] Job Start Date Job End Date 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 Not on file Not on file Not [...] refill on linaGLIPtin (Tradjenta) 5 MG tablet [[id number]] cyclobenzaprine (Flexeril) 5 MG tablet [[id number]] [id number] [facility] [address] [id number] documented in this encounter Plan of Treatment Upcoming Encounters Date Type Department Care Team (Late st Contact Info) Description 07/30/2024 12:15 PM EDT Clinical Support [facility] NUTRITION [address] [place] [address] Kemi Onofre, RD [address] [place] [address] 08/29/2024 11:00 AM EDT Office Visit [facility] OPTOMETRY [address] [place] [address] Brie Mena, OD [address] [place] [address] 10/15/2024 10:45 AM EDT Office Visit [facility] MEDICAL [address] [place] [address] Gianna Payne DO [address] [place] [address] 10/19/2024 11:00 AM EDT Office Visit [facility] DENTAL [address] [place] [address] Loree Cote documented as of this encounter Visit Diagnoses Diagnosis Type 2 diabetes mellitus with diabetic polyneuropathy, without long-term current use of insulin ([facility]) Fibromyalgia Unspecified myalgia and myositis documented in this encounter Care Teams Director Global Strategic Publisher Sales Relationship Specialty Start Date End Date Sujey Rapp FNP PCP - General Family Medicine 03/12/22 10/30/23 Diamond Vidal FNP [address] [place] [id number] PCP - General Family Medicine 10/31/23 04/11/24 Gianna Payne DO [address] [place] [id number] PCP - General Family Medicine 04/12/24 Demi Mckenna Community Health Worker 06/07/[address] [place] [address] Dietitian Dietitian 07/06/22 Sonia Garcia LICSW [address] [place] [address] [facility] 07/06/22 Jason Morales Health Navigator 07/20/18 documented as of this encounter
== END 2024-07-24 15:31 | disposition home or self-care (01) ==
LOC: HO.HVS 14:54
PROVIDERS: PCP Family Medicine; Visit Provider Surgery Vascular Surgery
DX: I65.23 Occlusion and stenosis of bilateral carotid arteries (principal); I83.12 Varicose veins of left lower extremity with inflammation; I83.11 Varicose veins of right lower extremity with inflammation
CPT/HCPCS: 99214

== ENCOUNTER → 2024-07-24 14:54 | Outpatient (BNVA) | payer MEDICARE, MEDICAID, SELFPAY | PROVIDERS: PCP Family Medicine; Visit Provider Surgery Vascular Surgery | DX: I65.23 Occlusion and stenosis of bilateral carotid arteries (principal); I83.12 Varicose veins of left lower extremity with inflammation; I83.11 Varicose veins of right lower extremity with inflammation | CPT/HCPCS: 99212 ==